=== PATIENT | male | born 1990 | race Hispanic/Latino ===

== ENCOUNTER 2016-12-28 08:24 | Emergency (ER) | payer OTHER ==
[~2016-12-28 08:24] MED LIST: ONDA4TAB9 PO
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
[2016-12-28 08:33] VITALS: BP 160/99; PULSE 112; RESP 26; O2SAT 100
[2016-12-28] MEDS ORDERED: Buprenorphine 2 mg SL Tablet SL ONE (08:35)
[2016-12-28] MEDS ORDERED: BUPR1FIL3 SL (12:29)
[2016-12-28 13:02] VITALS: BP 160/99; PULSE 112; RESP 26; O2SAT 100
== END 2016-12-28 13:03 | disposition home or self-care (01) ==
LOC: SED 08:24
DX: F11.23 Opioid dependence with withdrawal (principal); F15.10 Other stimulant abuse, uncomplicated; I10 Essential (primary) hypertension; Z87.891 Personal history of nicotine dependence

== ENCOUNTER 2017-05-26 19:49 | Emergency (ER) | payer OTHER ==
[~2017-05-26] VITALS: Ht 170.2 cm; Wt 68.2 kg
[~2017-05-26 19:49] MED LIST changes: +BUPR1FIL3 SL
[2017-05-26 20:03] VITALS: BP 146/95; PULSE 103; RESP 16; O2SAT 98
--- NOTE | 2017-05-26 21:00 | DRSVH ---
PROCEDURE: X-RAY CHEST, TWO VIEWS ([id number]) INDICATIONS: CP DROPPED WEIGHT ON CHEST TECHNIQUE: 2 views of the chest were acquired. COMPARISON: [facility], , CHEST 2VW, 02/28/2014, 1:05. FINDINGS: Surgical changes and devices: None. Lungs and pleura: No pleural effusions or pneumothorax. Lungs are clear. Mediastinum: Mediastinal contours are normal. Heart size is normal. Bones and chest wall: No displaced rib fracture identified. No definite depressed sternal fracture. Soft tissues appear unremarkable. IMPRESSION: 1. No depressed sternal fracture or displaced rib fracture identified. Dictated by: Ki Virk M.D. on 05/26/2017 at 20:57 Approved by: Ki Virk M.D. on 05/26/2017 at 20:58
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
[2017-05-26 21:55] VITALS: BP 144/85; PULSE 99; RESP 20; O2SAT 97
== END 2017-05-26 21:56 | disposition home or self-care (01) ==
LOC: SED 19:49
DX: S20.212A Contusion of left front wall of thorax, initial encounter (principal); W20.8XXA Other cause of strike by thrown, projected or falling object, initial encounter; Y93.59 Activity, other involving other sports and athletics played individually; Y92.39 Other specified sports and athletic area as the place of occurrence of the external cause; Y99.8 Other external cause status; Z87.891 Personal history of nicotine dependence; Z91.018 Allergy to other foods

== ENCOUNTER 2017-07-31 10:05 | Emergency (ER) | payer OTHER ==
[~2017-07-31] VITALS: Ht 170.2 cm; Wt 65.9 kg
[2017-07-31 10:12] VITALS: BP 142/88; PULSE 85; RESP 16; O2SAT 100
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
[2017-07-31] MEDS ORDERED: Buprenorphine 2 mg SL Tablet SL ONE ×2 (11:00→11:45)
[2017-07-31 12:40] VITALS: BP 128/74; PULSE 70; O2SAT 97
[2017-07-31 14:41] VITALS: BP 127/66; PULSE 79; RESP 16; O2SAT 96
== END 2017-07-31 14:42 | disposition home or self-care (01) ==
LOC: SED 10:05
DX: F11.23 Opioid dependence with withdrawal (principal); F11.10 Opioid abuse, uncomplicated; F43.10 Post-traumatic stress disorder, unspecified; Z87.891 Personal history of nicotine dependence